=== PATIENT | male | born 1990 | race African-American/Black ===

== ENCOUNTER 2019-08-31 12:01 | Emergency (ER) | payer OTHER ==
[~2019-08-31] VITALS: Ht 188 cm; Wt 88.9 kg
[2019-08-31 12:19] VITALS: BP 161/96
== END 2019-08-31 13:39 | disposition home or self-care (01) ==
LOC: ER 12:03
DX: Z03.818 Encounter for observation for suspected exposure to other biological agents ruled out (principal); Z20.828 Contact with and (suspected) exposure to other viral communicable diseases
CPT/HCPCS: 36415

== ENCOUNTER 2019-10-26 12:07 | Emergency (ER) | payer OTHER ==
[~2019-10-26] VITALS: Ht 188 cm; Wt 93.4 kg
[2019-10-26 12:26] VITALS: BP 132/88
--- NOTE | 2019-10-26 12:29 | NUR ---
COVID SWAB OBTAINED AND SENT TO LAB.
== END 2019-10-26 12:30 | disposition home or self-care (01) ==
LOC: ER 12:08
DX: Z03.818 Encounter for observation for suspected exposure to other biological agents ruled out (principal)
CPT/HCPCS: 99283; U0003

== ENCOUNTER 2019-11-22 15:16 | Emergency (ER) | payer OTHER ==
[~2019-11-22] VITALS: Ht 188 cm; Wt 83.9 kg
[2019-11-22 15:18] VITALS: BP 122/75
--- NOTE | 2019-11-22 16:13 | NUR ---
Patient discharged to home in stable condition. Written and verbal after care instructions given. Patient verbalizes understanding of instruction.
== END 2019-11-22 16:13 | disposition home or self-care (01) ==
LOC: ER 15:20
DX: Z11.59 Encounter for screening for other viral diseases (principal)
CPT/HCPCS: 99283; C9803; U0003

== ENCOUNTER 2019-11-30 07:15 | Emergency (ER) | payer OTHER ==
[~2019-11-30] VITALS: Ht 188 cm; Wt 83.9 kg
[2019-11-30 07:34] VITALS: BP 152/103
--- NOTE | 2019-11-30 07:51 | NUR ---
Patient discharged to home in stable condition. Written and verbal after care instructions given. Patient verbalizes understanding of instruction.
== END 2019-11-30 07:52 | disposition home or self-care (01) ==
LOC: ER 07:19
DX: Z11.59 Encounter for screening for other viral diseases (principal)
CPT/HCPCS: 99283; C9803; U0003

== ENCOUNTER 2019-12-16 14:11 | Emergency (ER) | payer OTHER ==
[~2019-12-16] VITALS: Ht 188 cm; Wt 93.4 kg
[2019-12-16 14:12] VITALS: BP 135/81
== END 2019-12-16 14:36 | disposition home or self-care (01) ==
LOC: ER 14:11
DX: Z11.59 Encounter for screening for other viral diseases (principal)
CPT/HCPCS: 99283; C9803; U0003

== ENCOUNTER → 2019-12-21 | Emergency (ER) | payer OTHER ==
[~2019-12-21] VITALS: Ht 188 cm; Wt 88.9 kg
[2019-12-21 13:53] VITALS: BP 125/84
== END | disposition still patient (30) ==
LOC: ER 13:51
DX: Z11.59 Encounter for screening for other viral diseases (principal)
CPT/HCPCS: 99283; C9803; U0003

== ENCOUNTER 2020-01-10 12:54 | Emergency (ER) | payer OTHER ==
[~2020-01-10] VITALS: Ht 188 cm; Wt 88.5 kg
[2020-01-10 13:06] VITALS: BP 126/75
--- NOTE | 2020-01-10 13:50 | NUR ---
Patient discharged to home in stable condition. Written and verbal after care instructions given. Patient verbalizes understanding of instruction.
== END 2020-01-10 13:50 | disposition home or self-care (01) ==
LOC: ER 12:55
DX: Z20.828 Contact with and (suspected) exposure to other viral communicable diseases (principal)
CPT/HCPCS: 99283; C9803; U0003

== ENCOUNTER 2020-02-06 14:29 | Emergency (ER) | payer OTHER ==
[~2020-02-06] VITALS: Ht 188 cm; Wt 88.5 kg
[2020-02-06 14:35] VITALS: BP 136/89
== END 2020-02-06 16:10 | disposition home or self-care (01) ==
LOC: ER 14:29
DX: Z20.828 Contact with and (suspected) exposure to other viral communicable diseases (principal)
CPT/HCPCS: 99283; C9803; U0003

== ENCOUNTER 2020-02-13 13:29 | Emergency (ER) | payer OTHER ==
[~2020-02-13] VITALS: Ht 188 cm; Wt 88.5 kg
[2020-02-13 13:33] VITALS: BP 119/76
== END 2020-02-13 14:16 | disposition home or self-care (01) ==
LOC: ER 13:32
DX: Z20.828 Contact with and (suspected) exposure to other viral communicable diseases (principal)
CPT/HCPCS: 99283; C9803; U0003

== ENCOUNTER 2020-02-21 11:02 | Emergency (ER) | payer OTHER ==
[~2020-02-21] VITALS: Ht 185.4 cm; Wt 79.4 kg
[2020-02-21 11:23] VITALS: BP 138/81
== END 2020-02-21 11:32 | disposition home or self-care (01) ==
LOC: ER 11:04
DX: Z20.828 Contact with and (suspected) exposure to other viral communicable diseases (principal)
CPT/HCPCS: C9803-CS; U0003-CS

== ENCOUNTER 2020-03-05 13:40 | Emergency (ER) | payer OTHER ==
[~2020-03-05] VITALS: Ht 188 cm; Wt 93.4 kg
[2020-03-05 13:46] VITALS: BP 124/79
--- NOTE | 2020-03-05 14:01 | NUR ---
COVID SWAB COLLECTED AND SENT TO LAB
== END 2020-03-05 14:02 | disposition home or self-care (01) ==
LOC: ER 13:41
DX: Z20.828 Contact with and (suspected) exposure to other viral communicable diseases (principal)
CPT/HCPCS: 99283; C9803; U0003

== ENCOUNTER 2020-03-12 14:19 | Emergency (ER) | payer OTHER ==
[~2020-03-12] VITALS: Ht 188 cm; Wt 94.3 kg
[2020-03-12 14:25] VITALS: BP 126/82
== END 2020-03-12 15:12 | disposition home or self-care (01) ==
LOC: ER 14:21
DX: Z20.828 Contact with and (suspected) exposure to other viral communicable diseases (principal)
CPT/HCPCS: 99283; C9803; U0003

== ENCOUNTER 2020-03-19 13:21 | Emergency (ER) | payer OTHER ==
[~2020-03-19] VITALS: Ht 188 cm; Wt 93.4 kg
[2020-03-19 13:38] VITALS: BP 124/82
== END 2020-03-19 14:13 | disposition home or self-care (01) ==
LOC: ER 13:23
DX: Z20.828 Contact with and (suspected) exposure to other viral communicable diseases (principal)
CPT/HCPCS: 99283; C9803; U0003

== ENCOUNTER 2020-03-26 15:23 | Emergency (ER) | payer OTHER ==
[~2020-03-26] VITALS: Ht 188 cm; Wt 93.4 kg
[2020-03-26 15:36] VITALS: BP 143/71
--- NOTE | 2020-03-26 15:37 | NUR ---
COVID SWAB DONE AND SENT TO LAB
--- NOTE | 2020-03-26 15:38 | NUR ---
Patient discharged to home in stable condition. Written and verbal after care instructions given. Patient verbalizes understanding of instruction. Pt ambulatory with a steady gait
== END 2020-03-26 15:40 | disposition home or self-care (01) ==
LOC: ER 15:23
DX: Z20.828 Contact with and (suspected) exposure to other viral communicable diseases (principal)
CPT/HCPCS: 99283; C9803; U0003

== ENCOUNTER 2020-04-02 15:43 | Emergency (ER) | payer OTHER ==
[~2020-04-02] VITALS: Ht 188 cm; Wt 93.4 kg
[2020-04-02 15:50] VITALS: BP 139/95
== END 2020-04-02 16:22 | disposition home or self-care (01) ==
LOC: ER 15:44
DX: Z20.828 Contact with and (suspected) exposure to other viral communicable diseases (principal)
CPT/HCPCS: 99283; C9803; U0003

== ENCOUNTER 2020-04-09 15:03 | Emergency (ER) | payer OTHER ==
[~2020-04-09] VITALS: Ht 188 cm; Wt 93.4 kg
[2020-04-09 15:06] VITALS: BP 134/86
--- NOTE | 2020-04-09 15:16 | NUR ---
COVID SWAB DONE AND SENT TO LAB
--- NOTE | 2020-04-09 15:17 | NUR ---
Patient discharged to home in stable condition. Written and verbal after care instructions given. Patient verbalizes understanding of instruction. Pt ambulatory with a steady gait
== END 2020-04-09 15:19 | disposition home or self-care (01) ==
LOC: ER 15:04
DX: Z20.828 Contact with and (suspected) exposure to other viral communicable diseases (principal)
CPT/HCPCS: 99283; C9803; U0003

== ENCOUNTER 2020-04-20 10:13 | Emergency (ER) | payer OTHER ==
[~2020-04-20] VITALS: Ht 182.9 cm; Wt 92.1 kg
[2020-04-20 10:15] VITALS: BP 120/77
== END 2020-04-20 10:36 | disposition home or self-care (01) ==
LOC: ER 10:13
DX: Z20.828 Contact with and (suspected) exposure to other viral communicable diseases (principal)
CPT/HCPCS: 99283; C9803; U0003

== ENCOUNTER 2020-04-30 08:13 | Emergency (ER) | payer OTHER ==
[~2020-04-30] VITALS: Ht 188 cm; Wt 93.4 kg
[2020-04-30 08:17] VITALS: BP 135/68
== END 2020-04-30 08:48 | disposition home or self-care (01) ==
LOC: ER 08:14
DX: Z20.828 Contact with and (suspected) exposure to other viral communicable diseases (principal)
CPT/HCPCS: 99283; C9803; U0003

== ENCOUNTER 2020-05-14 13:00 | Emergency (ER) | payer OTHER ==
[~2020-05-14] VITALS: Ht 188 cm; Wt 79.4 kg
[2020-05-14 14:10] VITALS: BP 134/77
== END 2020-05-14 14:12 | disposition home or self-care (01) ==
LOC: ER 13:02
DX: Z20.828 Contact with and (suspected) exposure to other viral communicable diseases (principal)
CPT/HCPCS: 99283; C9803; U0003

== ENCOUNTER 2020-05-20 08:12 | Emergency (ER) | payer OTHER ==
[~2020-05-20] VITALS: Ht 188 cm; Wt 88.9 kg
[2020-05-20 08:19] VITALS: BP 143/91
[2020-05-20] MEDS ORDERED: DEXAMETHASONE 1 MG TABLET PO ONE (08:30)
[2020-05-20] MEDS ORDERED: ACETAMINOPHEN ES 500 MG TABLET PO ONE (08:30)
[2020-05-20] MEDS ORDERED: ACETAMINOPHEN ES 500 MG TABLET ONE (08:32)
[2020-05-20] MEDS ORDERED: DEXAMETHASONE 4 MG TABLET ONE (08:32)
--- NOTE | 2020-05-20 09:07 | NUR ---
Patient discharged to home in stable condition. Written and verbal after care instructions given. Patient verbalizes understanding of instruction.
== END 2020-05-20 09:07 | disposition home or self-care (01) ==
LOC: ER 08:13
DX: J02.9 Acute pharyngitis, unspecified (principal); R09.89 Other specified symptoms and signs involving the circulatory and respiratory systems; Z20.828 Contact with and (suspected) exposure to other viral communicable diseases; F17.200 Nicotine dependence, unspecified, uncomplicated
CPT/HCPCS: 87426; 99283; C9803; J8540

== ENCOUNTER 2021-02-17 11:04 | Outpatient (CLI) | payer BC | END 2021-02-17 23:59 | disposition home or self-care (01) | LOC: MRI 11:04 | PROVIDERS: ATTEND Nurse Practitioner Acute Care | DX: J32.2 Chronic ethmoidal sinusitis (principal); G43.909 Migraine, unspecified, not intractable, without status migrainosus | CPT/HCPCS: 70551-TC ==